=== PATIENT | female | born 1965 | race Caucasian/White ===

== ENCOUNTER 2016-09-14 17:56 | Emergency (ER) | payer OTHER ==
[~2016-09-14] VITALS: Ht 157.5 cm; Wt 138.5 kg
[~2016-09-14 17:56] MED LIST: CIPR500T4 PO; HYDR-906 PO; INSU100V23 SC; ONDA4TAB8 PO; TAMS-14 PO
[2016-09-14 18:01] VITALS: Ht 157.5 cm; Wt 138.5 kg
[2016-09-14] MEDS ORDERED: ONDANSETRON (ODT) 4 MG TAB ODT STA (18:14)
[2016-09-14] MEDS ORDERED: HYDROCODONE/APAP (10/325) TAB PO ONE (18:30)
[2016-09-14] MEDS ORDERED: NICARDipine HCL 30 MG CAPSULE PO ONE (18:30)
[2016-09-14] MEDS ORDERED: ONDA4TAB14 PO (18:31)
[2016-09-14] MEDS ORDERED: HYDR-902 PO (18:31)
[2016-09-14] MEDS ORDERED: KETOROLAC 30 MG INJ IM STA (18:43)
[2016-09-14] MEDS ORDERED: ONDANSETRON 4 MG INJ IM STA (18:43)
--- NOTE | 2016-09-14 18:47 | ERD ---
ER Documentation Chief Complaint Date/Time DATE: 09/14/16 TIME: 18:45 Chief Complaint Complains of devere back pain HPI Patient is a 51-year-old female with hypertension and diabetes who presents with left-sided abdominal pain. The patient says "I think I have a UTI or kidney stone". The patient said that she has had brown urination. She has no fevers. This started a few days ago but was worsening in pain. Upon review of old medical records this is the patient's eighth visit to the ER since 2009. Her primary doctor is at [facility]. ROS All systems reviewed and are negative except as per history of present illness. Medications Home Meds Active Scripts Ondansetron (Ondansetron Odt) 4 Mg Tab.rapdis, 4 MG PO Q6H Y for NAUSEA AND/OR VOMITING, #10 TAB Prov:SESAR RAMIRES MD 09/14/16 Hydrocodone/Acetaminophen ([place] 10-325 Tablet) 1 Each Tablet, 1 TAB PO Q6H Y for PAIN, #7 TAB Prov:SESAR RAMIRES MD 09/14/16 Ondansetron Hcl* (Zofran*) 4 Mg Tablet, 4 MG PO Q8H Y for NAUSEA AND/OR VOMITING , #12 TAB Prov:ZABRINA KWAN DO 01/26/16 Hydrocodone/Acetaminophen ([place] 5-325 Tablet) 1 Each Tablet, 1 TAB PO Q6H Y for PAIN, #20 TAB Prov:ZABRINA KWAN DO 01/26/16 Tamsulosin Hcl* (Flomax*) 0.4 Mg Cap.er.24h, 0.4 MG PO QPM, #14 CAP Prov:ZABRINA KWAN DO 01/26/16 Hydrocodone/Acetaminophen ([place] 5-325 Tablet) 1 Each Tablet, 1 TAB PO Q6H Y for PAIN, #20 TAB Prov:ZABRINA KWAN DO 01/13/16 Ciprofloxacin Hcl* (Ciprofloxacin Hcl*) 500 Mg Tablet, 500 MG PO BID for 14 Days , TAB Prov:ZABRINA KWAN DO 07/17/15 Reported Medications Insulin Regular, Human* (Novolin R*) 100 U/Ml Vial, 0 SC SLIDING SCALE AC, VIAL 07/17/15 Allergies Allergies: Coded Allergies: No Known Allergies (Verified Allergy, Mild, 10/22/16) PMhx/Soc History of Surgery: Yes (TUBAL LIGATION) Anesthesia Reaction: No Hx Neurological Disorder: No Hx Respiratory Disorders: No Hx Cardiac Disorders: Yes (HTN, HYPERLIPIDEMIA) Hx Psychiatric Problems: No Hx Miscellaneous Medical Probl: Yes (DM, kidney stones) Hx Alcohol Use: No Hx Substance Use: No Hx Tobacco Use: No Smoking Status: Never smoker FmHx Family History: diabetes Physical Exam Vitals Vital Signs Date Time Temp Pulse Resp B/P Pulse Ox O2 Delivery O2 Flow Rate FiO2 09/14/16 18:32 74 16 185/79 100 Room Air 09/14/16 18:01 97.2 76 20 232/107 98 Physical Exam Const: Mild distress secondary to pain Head: Atraumatic Eyes: Normal Conjunctiva ENT: Normal External Ears, Nose and Mouth. Neck: Full range of motion..~ No meningismus. Resp: Clear to auscultation bilaterally Cardio: Regular rate and rhythm, no murmurs Abd: Left lower quadrant tenderness to palpation without rebound or guarding Skin: No petechiae or rashes Back: No midline or flank tenderness Ext: No cyanosis, or edema Neur: Awake and alert Psych: Normal Mood and Affect Results 24 hrs Current Medications Medications (Trade) Dose Ordered Sig/Julio Route PRN Reason Start Time Stop Time Status Last Admin Dose Admin Acetaminophen/ Hydrocodone Bitart ([place] (10/325)) 1 tab ONCE ONCE PO 09/14/16 18:30 09/14/16 18:31 DC 09/14/16 18:29 Ondansetron HCl (Zofran Odt) 4 mg ONCE STAT ODT 09/14/16 18:14 09/14/16 18:16 DC 09/14/16 18:30 Nicardipine HCl (Cardene) 30 mg ONCE ONCE PO 09/14/16 18:30 09/14/16 18:31 DC 09/14/16 18:30 Ketorolac Tromethamine (Toradol) 30 mg ONCE STAT IM 09/14/16 18:43 09/14/16 18:44 Ondansetron HCl (Zofran Inj) 4 mg ONCE STAT IM 09/14/16 18:43 09/14/16 18:44 Procedures/MDM CT abdomen pelvis pending at this time. Urinalysis pending. Patient is a 51-year-old female with hypertension and diabetes who presents with abdominal pain and flank pain. The patient is pending a urinalysis and CT scan of the abdomen and pelvis. I would like to rule out cystitis as well as kidney stone. At this point I doubt appendicitis, cholecystitis, pancreatitis, or bowel obstruction. I believe outpatient management will most likely be possible. The patient will be discharged with a prescription for [place] and Zofran. If she is found to have an acute cystitis she will need antibiotics as well. The patient will be signed out to the oncoming physician. The patient should follow-up with a primary doctor within 24-48 hours. She could return for any worsening symptoms. Departure Diagnosis: Primary Impression: Abdominal pain Abdominal location: left lower quadrant Qualified Code: R10.32 - Left lower quadrant pain Additional Impression: Hypertension Hypertension type: essential hypertension Qualified Code: I10 - Essential hypertension Condition: Fair Patient Instructions: Abdominal Pain, High Blood Pressure (Hypertension) Referrals: Your doctor Additional Instructions: Call your primary care doctor TOMORROW for an appointment during the next 1-2 days.See the doctor sooner or return here if your condition worsens before your appointment time. SESAR RAMIRES MD Sep 14, 2016 18:47
[2016-09-14 18:48] LABS: ADD UMIC YES; URINE BILIRUBIN (Dip) NEGATIVE (NEGATIVE); URINE BLOOD (Dip) 3+ (NEGATIVE); URINE COLOR LT. RED (YELLOW); URINE GLUCOSE (Dip) NEGATIVE (NEGATIVE); URINE KETONES (Dip) NEGATIVE (NEGATIVE); URINE LEUKOCYTE ESTERASE (Dip) NEGATIVE (NEGATIVE); URINE NITRITE (Dip) NEGATIVE (NEGATIVE); URINE TOTAL PROTEIN (Dip) 2+ (NEGATIVE); URINE UROBILINOGEN (Dip) 0.2 E.U./dL (0.1-1.0)
[2016-09-14 18:54] LABS: BACTERIA,URINE MANY; URINE RBCS >200 /HPF (0)
[2016-09-14] MEDS ORDERED: CIPR500T4 PO (18:59)
--- NOTE | 2016-09-14 19:17 | RADRPT ---
PROCEDURE: CT abdomen and pelvis without contrast. CLINICAL INDICATION: Left side abdominal pain. TECHNIQUE: Noncontrast CT examination of the abdomen and pelvis, with axial, sagittal and coronal r eformatted images. CTDI: 20.36 mGy and DLP: 1225.16 mGy-cm. COMPARISON: CT abdomen and pelvis dated 01/26/2016. FINDINGS: CT abdomen: The lung bases are clear. The heart size is normal, without pericardial thickening or effusion. Mil d hiatal hernia. The liver is normal in size and density without focal mass or intrahepatic biliary dilatation. The spleen is normal in size and homogeneous in density. The stomach is partially collapsed, but is alessandro ssly unremarkable. The pancreas as visualized is normal. The gallbladder is filled with gallstones , without CT evidence of acute cholecystitis; and biliary tree is unremarkable and there is no evide nce for biliary dilatation. The adrenal glands are symmetric and normal. Right kidney is unremarkable. Left obstructive uropat hy with mild hydronephrosis and perinephric fat inflammatory changes. 6 mm obstructing calculus at t he left ureteropelvic junction. 9 mm nonobstructing calculus is seen at the inferior pole of the lef t kidney. Previously seen right obstructive uropathy is resolved. The aorta is of normal caliber. Aortic vascular calcifications are very mild. There is no retroper itoneal lymphadenopathy. The allie hepatis region is clear. The bowel and mesentery, as visualized , are equally unremarkable. CT pelvis: The small bowel loops situated within the pelvis are unremarkable. The pelvic organs are normal. T he pelvic sidewalls and inguinal regions are clear. The sigmoid colon and rectum are all unremarkab le. No mass, lymphadenopathy, or free fluid is seen. No acute inflammation is seen. The appendix is unremarkable. The surrounding osseous structures are remarkable for mild degenerative spondylosis of the spine. N o osteolytic or osteoblastic lesion is detected. IMPRESSION: 1. 6 mm obstructing calculus at the left ureteropelvic junction. 2. Gallstones, without CT evidence of acute cholecystitis. RPTAT: [facility] Physician Aida Date Time Electronically viewed and signed by Physician Aida on 09/14/2016 19:17 RS/
[2016-09-14] MEDS ORDERED: PROMETHAZINE 25 MG TAB PO ONE (19:30)
[2016-09-14] MEDS ORDERED: SOD CHLORIDE 0.9% 500 ML IV ONE (19:30)
[2016-09-14] MEDS ORDERED: FAMOTIDINE 20 MG INJ IV ONE (19:30)
[2016-09-14] MEDS ORDERED: ONDANSETRON 4 MG INJ IV STA (19:39)
[2016-09-14 19:59] LABS: ADD SCAN DIFF NO
[2016-09-14 20:06] LABS: BASOPHIL # 0.1 10^3/ul (0.0-0.1); BASOPHILS % 0.7 % (0.0-2.0); EOSINOPHILS # 0.2 10^3/ul (0.0-0.5); EOSINOPHILS % 1.9 % (0.0-7.0); HEMATOCRIT 35.6 % (37.0-47.0); HEMOGLOBIN 11.9 g/dl (12.0-16.0); LYMPHOCYTES % 16.7 % (15.0-51.0); MEAN CORPUSCULAR HEMOGLOBIN 31.5 pg (29.0-33.0); MEAN CORPUSCULAR HGB CONC 33.4 g/dl (32.0-37.0); MEAN CORPUSCULAR VOLUME 94.2 fl (82.0-101.0); MEAN PLATELET VOLUME 10.4 fl (7.4-10.4); MONOCYTE # 0.8 10^3/ul (0.3-0.9); MONOCYTES % 6.7 % (0.0-11.0); NEUTROPHIL # 8.6 10^3/ul (1.6-7.5); NEUTROPHILS % 73.5 % (39.0-77.0); PLATELET COUNT 238 10^3/UL (140-415); RED BLOOD COUNT 3.78 10^6/ul (4.20-5.40); RED CELL DISTRIBUTION WIDTH 13.2 % (11.5-14.5); WHITE BLOOD COUNT 11.7 10^3/ul (4.8-10.8)
[2016-09-14 21:17] LABS: CALCIUM 9.8 mg/dl (8.4-10.2); CREATININE 1.32 mg/dl (0.44-1.00); POTASSIUM 4.5 mmol/L (3.5-5.1)
[2016-09-14 21:50] VITALS: BP 157/87; PULSE 73; RESP 20
== END 2016-09-14 22:05 | disposition home or self-care (01) ==
LOC: E/R 17:56
DX: R10.32 Left lower quadrant pain (principal); I10 Essential (primary) hypertension; E11.9 Type 2 diabetes mellitus without complications; Z79.4 Long term (current) use of insulin
CPT/HCPCS: 74176; 80048; 81001; 85025; J1885; J2405; J7040; Z7610; 36415; 96372; 96374; 96375